=== PATIENT | male | born 1960 | race Caucasian/White ===

== ENCOUNTER 2018-06-05 14:17 | Emergency (ER) | payer OTHER ==
--- NOTE | 2018-06-05 14:29 | PDOC ---
History of Present Illness - General Chief Complaint: Injury Stated Complaint: INJURED RIGHT MID FINGER Time Seen by Provider: 06/05/18 14:29 History Source: Patient Exam Limitations: No Limitations - History of Present Illness Initial Comments: HPI: 58 y/o male presenting to [facility] complaining of pain to middle finger on right hand. Pt states he slipped on ice around 11:30 this morning and struck his hand on the ground. The middle finger looked deformed, so the pt pulled on the tip and it returned to normal shape. Denies striking his head or neck when he fell. Denies LOC, retrograde or anterograde amnesia, or nausea/vomiting. Was able to self ambulate after the fall. Did not take medication for pain prior to arrival. Medical Hx: - HCL Surgical Hx: - Pt denies past surgical history. Past History - Past Medical History Allergies/Adverse Reactions: Allergies Allergy/AdvReac Type Severity Reaction Status Date / Time No Known Allergies Allergy Unverified 06/05/18 14:19 Home Medications: Ambulatory Orders Simvastatin 20 mg PO DAILY 06/05/18 COPD: No Hypercholesterolemia: Yes - Suicide/Smoking/Psychosocial Hx Smoking History: Never smoked Information on smoking cessation initiated: No Hx Alcohol Use: No Drug/Substance Use Hx: No Review of Systems - Review of Systems Able to Perform ROS?: Yes Comments:: In addition to that documented in the HPI above, the additional ROS was obtained : Constitutional: Denies fevers or chills ENMT: Denies sore throat CV: Denies chest pain Resp: Denies SOB GI: Denies vomiting or diarrhea Heme: Denies bleeding or bruising Neuro: Denies numbness or tingling *Physical Exam - Vital Signs Last Vital Signs Temp Pulse Resp BP Pulse Ox 97.7 F 75 16 128/83 98 06/05/18 14:18 06/05/18 14:18 06/05/18 14:18 06/05/18 14:18 06/05/18 14:18 - Physical Exam Comments: Constitutional: Well-developed, well-nourished male in no acute distress or obvious discomfort. Found sitting upright on edge of hospital bed. Alert and oriented x4. Answered all questions appropriately and completely. Speech was non -labored, non-pressured. Head: Normocephalic. No obvious external signs of trauma. Eyes: Sclerae white. EARS: Hearing grossly intact. NOSE: No nasal discharge. Neck: Supple, trachea is midline. Cardiovascular: Regular rate and regular rhythm. No murmur, rubs, clicks, or gallops. Peripheral pulses: Radial pulses full. Respiratory: Breathing unlabored. Equal chest rise and fall. Clear to auscultation bilaterally. No stridor, no wheezing, no rhonchi. Neuro: Alert and oriented. Moving all four extremities spontaneously. Gait normal, observed walking unassisted through the department without difficulty. Skin/MSK: Point tenderness to medial and lateral aspect of PIP joint on 3rd digit of right hand. Able to flex and extend at PIP and DIP but ROM decreased secondary to pain. No gross deformity. Intact sensation to distal tip of digit. No skin break. Digit is warm and well perfused. No tenderness to palm or wrist. Globally, skin is warm, dry, and intact. Psych: Affect: appropriate. Mood: normal. Moderate Sedation - Procedure Monitoring Vital Signs: Procedure Monitoring Vital Signs Temperature 97.7 F 06/05/18 14:18 Pulse Rate 75 06/05/18 14:18 Respiratory Rate 16 06/05/18 14:18 Blood Pressure 128/83 06/05/18 14:18 O2 Sat by Pulse Oximetry (%) 98 06/05/18 14:18 Medical Decision Making - Medical Decision Making *Reviewed vital signs, nursing notes, and prior visit documentation (if available). 58 y/o female presenting with pain to PIP of 3rd digit on right hand (dominant hand). Suspect the digit was dislocated and reduced by patient prior to arrival. Will obtain plain films to evaluate for occult fracture and essentially post reduction. Ordered ibuprofen for symptom relief. Plain film revealed possible small bony avulsion laterally and inferiorly from PIP. Formal radiology report pending. Will splint the extremity and refer to orthopedics for outpatient follow up. Discussed imaging and laboratory results with pt. Answered all questions. Provided return precautions. Pt expressed verbal understanding and agreement with plan to discharge home with outpatient follow up. *DC/Admit/Observation/Transfer Diagnosis at time of Disposition: Finger pain, right - Discharge Dispostion Disposition: HOME Condition at time of disposition: Good Decision to Admit order: No - Referrals Referrals: Julio Cesar Patino DO [Staff Physician] - - Patient Instructions Printed Discharge Instructions: DI for Finger Dislocation Additional Instructions: You were seen today for pain to the middle finger of your right hand after you fell. Your xray showed a possible small chip off the bone but dislocation. You likely set your finger yourself. You should follow up with an orthopedic doctor within the next week to make sure you are healing. Keep the finger in the splint until the appointment. I have placed a referral for you to see Dr. Patino. You will need to call to make an appointment. The number is included in this packet. You can take over the counter Tylenol or Advil as needed for pain. Take as directed on the package insert. Do not exceed the recommended dosage. Go to the nearest emergency department if your condition worsens or you feel like you need additional emergency evaluation. Print Language: FINNISH - Post Discharge Activity
[2018-06-05 14:45] VITALS: BP 128/83; PULSE 75; TEMP 97.7; BMI 25.8
[2018-06-05] MEDS ORDERED: IBUPROFEN 600 MG TABLET (FP) PO ONE ×2 (14:57→15:10)
--- NOTE | 2018-06-05 15:15 | PDOC ---
Attending Attestation - Resident Resident Name: Lior Carter - ED Attending Attestation I have performed the following: I have examined & evaluated the patient, The case was reviewed & discussed with the resident, I agree w/resident's findings & plan - HPI HPI: 06/05/18 15:12 58 y/o male with right hand injury around 11 am today. Fell and finger was angulated so patient put finger back in. Painful and swollen at joint. Has not iced it or taken anything for the pain. - Physicial Exam PE: 06/05/18 15:13 VSS Heart RRR without murmur EXT: right hand 3rd digit with swelling and tenderness at PIP, decreased ROM, no deformity noted, capillary refill < 2 sec Neuro: strength 5+/5 b/l in UE, no focal deficits noted - Medical Decision Making 06/05/18 16:16 X-ray right hand 3rd digit: ? small avulsion fracture at PIP joint Ice, Motrin, rest Splint Follow up with Orthopedics If worsen return to ER 06/05/18 16:17 Chart reviewed and agree with plan of resident Dr. Carter Final Dx: right 3rd digit avulsion fracture
== END 2018-06-05 16:21 | disposition home or self-care (01) ==
LOC: FER 14:17
PROC: 2W3JX1Z Immobilization of Right Finger using Splint (ICD-10-PCS; principal; 2018-06-05)
DX: M79.644 Pain in right finger(s) (principal); W00.0XXA Fall on same level due to ice and snow, initial encounter; Y93.89 Activity, other specified; Y92.410 Unspecified street and highway as the place of occurrence of the external cause; E78.00 Pure hypercholesterolemia, unspecified
CPT/HCPCS: 73140-TC-RT-FY; 99282-25